=== PATIENT | male | born 1965 | race Caucasian/White ===

== ENCOUNTER → 2016-10-08 | Outpatient (CLI) | payer OTHER ==
--- NOTE | 2016-10-08 15:44 | XR ---
Right hip HISTORY: Pain 2 views of the right hip No comparisons There is a sclerotic focus likely in the anterior cortex of the right femoral neck measuring approxim ately 2.7 cm in size. No definite cortical destruction or soft tissue mass. Alignment is maintained. There is joint space loss. Difficult to exclude a loose body at the lateral aspect of the right hip j oint or possibly chondrocalcinosis. Marginal spurring is mild. Bone mineralization otherwise normal. No fracture or dislocation. IMPRESSION: Findings may be due to osteoarthritis or crystal deposition arthropathy. Possible bone is land right femoral neck. Bone scan may be of benefit to exclude metastatic disease as indicated.
== END | disposition home or self-care (01) ==
LOC: RADXRMAIN 14:09
PROVIDERS: ATTEND Physical Medicine & Rehabilitation
DX: R52 Pain, unspecified (principal)
CPT/HCPCS: 73502

== ENCOUNTER → 2017-06-13 | Outpatient (CLI) | payer OTHER ==
--- NOTE | 2017-06-13 12:33 | XR ---
EXAMINATION TYPE: XR wrist complete LT DATE OF EXAM: 06/13/2017 COMPARISON: NONE HISTORY: Pain TECHNIQUE: Four views submitted. FINDINGS: The osseous structures are intact. The joint spaces are preserved and there is no acute fracture or dislocation. IMPRESSION: 1. No definite acute fracture or dislocation if symptoms persist, follow-up study in 7 to 10 days wo uld be suggested
--- NOTE | 2017-06-13 12:35 | XR ---
EXAMINATION TYPE: XR hand complete LT DATE OF EXAM: 06/13/2017 COMPARISON: NONE HISTORY: Pain TECHNIQUE: Three views are submitted. FINDINGS: The osseous structures are intact. The joint spaces are preserved and there is no acute fracture or dislocation. IMPRESSION: 1. No definite acute fracture or dislocation if symptoms persist, follow-up study in 7 to 10 days wo uld be suggested
== END | disposition home or self-care (01) ==
LOC: RADXRMAIN 12:10
PROVIDERS: ATTEND Physical Medicine & Rehabilitation
DX: M25.532 Pain in left wrist (principal); M89.9 Disorder of bone, unspecified

== ENCOUNTER 2024-08-19 13:55 | Emergency (ER) | payer OTHER ==
--- NOTE | 2024-08-19 14:21 | ED ---
Neck Injury/Pain HPI - General Chief Complaint: Neck Pain/Injury Stated Complaint: Back/Shoulder Pain Time Seen by Provider: 08/19/24 14:21 Source: patient, family, RN notes reviewed Mode of arrival: ambulatory Limitations: no limitations - History of Present Illness Initial Comments: 58-year-old male presented the ER for evaluation of left neck/shoulder pain. He states on 08 06 24 he started to experience neck discomfort. He states throughout that weekend pain began to shoot to his left shoulder. Patient was seen at [facility] on 08-09-2024, he states he had x-rays and CT neck performed which he states were negative. Patient was treated for musculoskeletal pain and discharged with a prescription of Toradol and Flexeril. He states he has been taking these as prescribed with no relief of symptoms. He states over the past week he has had progressive worsening of pain to his left shoulder. He states it is worse with movement causing him limited range of motion. He states pain does occasionally radiate down his posterior arm past his elbow. He denies any paresthesias to his left upper extremity. He was reporting his current discomfort is left anterior shoulder. He denies any known injuries or traumas. He states pain kept him up all last night which prompted emergency department visit. He denies any dizziness, lightheadedness, chest pain, shortness of breath or other complaints. He denies fevers or chills. - Related Data Home Medications Medication Instructions Recorded Confirmed Meloxicam 15 mg PO DAILY 12/11/14 12/11/14 Omeprazole [PriLOSEC] 20 mg PO AC-BRKFST 12/11/14 12/11/14 gemfibroziL [Lopid] 600 mg PO AC-BID 12/11/14 12/11/14 lisinopriL [Prinivil] 20 mg PO DAILY 12/11/14 12/11/14 metFORMIN HCL [Glucophage] 500 mg PO BID 12/11/14 12/11/14 Previous Rx's Medication Instructions Recorded Lidocaine 5% Patch [Lidoderm 5% 1 patch TOPICAL DAILY #30 patch 08/19/24 Patch] Allergies Allergy/AdvReac Type Severity Reaction Status Date / Time nuts Allergy Unknown Uncoded 08/19/24 14:07 Review of Systems ROS Statement: Those systems with pertinent positive or pertinent negative responses have been documented in the HPI. ROS Other: All systems not noted in ROS Statement are negative. Past Medical History Past Medical History: Diabetes Mellitus, Hyperlipidemia, Hypertension Additional Past Medical History / Comment(s): back pain History of Any Multi-Drug Resistant Organisms: None Reported Past Surgical History: No Surgical Hx Reported Past Psychological History: No Psychological Hx Reported Past Alcohol Use History: None Reported Past Drug Use History: None Reported General Exam Limitations: no limitations General appearance: alert, in no apparent distress Neck exam: Present: normal inspection, full ROM. Absent: tenderness, meningismus, lymphadenopathy Respiratory exam: Present: normal lung sounds bilaterally. Absent: respiratory distress, wheezes, rales, rhonchi, stridor Cardiovascular Exam: Present: normal rhythm, tachycardia, normal heart sounds Extremities exam: Present: normal inspection, tenderness (Left AC joint. And left trapezius muscle), normal capillary refill (2+ left radial pulse.), other (Limited full active range of motion given pain) Back exam: Present: normal inspection Neurological exam: Present: alert, oriented X3, CN II-XII intact Skin exam: Present: warm, dry, intact, normal color. Absent: rash Course Vital Signs 08/19/24 08/19/24 14:03 15:38 Temperature 98.7 F 98 F Pulse Rate 125 H 98 Respiratory 17 18 Rate Blood Pressure 106/71 121/77 O2 Sat by Pulse 98 99 Oximetry Medical Decision Making - Medical Decision Making Was pt. sent in by a medical professional or institution (FELICIA Pulliam, ACTIVITY DIRECTOR, urgent care, hospital, or group home...) When possible be specific @ -[No] Did you speak to anyone other than the patient for history (EMS, parent, family, police, friend...)? What history was obtained from this source @ -[No] Did you review nursing and triage notes (agree or disagree)? Why? @ -[I reviewed and agree with nursing and triage notes] Were old charts reviewed (outside hosp., previous admission, EMS record, old EKG, old radiological studies, urgent care reports/EKG's, group home records)? Report findings @ -[No old charts were reviewed] Differential Diagnosis (chest pain, altered mental status, abdominal pain women, abdominal pain men, vaginal bleeding, weakness, fever, dyspnea, syncope, headache, dizziness, GI bleed, back pain, seizure, CVA, palpatations, mental health, musculoskeletal)? @ -Differential Musculoskeletal: Muscular strain, contusion, ligament sprain, fracture, arthritis, septic arthritis, bursitis, cellulitis, muscle spasm, nerve compression, DVT, arterial occlusion, herpes zoster, electrolyte abnormality, tumor.... This is not meant to be in all inclusive list: EKG interpreted by me (3pts min.). @ -None done X-rays interpreted by me (1pt min.). @ -[None done] CT interpreted by me (1pt min.). @ -[None done] U/S interpreted by me (1pt. min.). @ -[None done] What testing was considered but not performed or refused? (CT, X-rays, U/S, labs)? Why? @ -[None] What meds were considered but not given or refused? Why? @ -[None] Did you discuss the management of the patient with other professionals (professionals i.e. , PA, ACTIVITY DIRECTOR, lab, RT, psych nurse, social director, pipe wrapping machine operator, teacher, chief digital media officer, senior case manager)? Give summary @ -[No] Was smoking cessation discussed for >3mins.? @ -[No] Was critical care preformed (if so, how long)? @ -[No] Were there social determinants of health that impacted care today? How? (Homelessness, low income, unemployed, alcoholism, drug addiction, transportation, low edu. Level, literacy, decrease access to med. care, fci, rehab)? @ -[No] Was there de-escalation of care discussed even if they declined (Discuss DNR or withdrawal of care, Hospice)? DNR status @ -[No] What co-morbidities impacted this encounter? (DM, HTN, Smoking, COPD, CAD, Cancer, CVA, ARF, Chemo, Hep., AIDS, mental health diagnosis, sleep apnea, morbid obesity)? @ -[None] Was patient admitted / discharged? Hospital course, mention meds given and route, prescriptions, significant lab abnormalities, going to OR and other p ertinent info. @ -[hospital course] Undiagnosed new problem with uncertain prognosis? @ -[No] Drug Therapy requiring intensive monitoring for toxicity (Heparin, Nitro, Insulin, Cardizem)? @ -[No] Were any procedures done? @ -[No] Diagnosis/symptom? @ -[default] Acute, or Chronic, or Acute on Chronic? @ -[default] Uncomplicated (without systemic symptoms) or Complicated (systemic symptoms)? @ -[default] Side effects of treatment? @ -[No] Exacerbation, Progression, or Severe Exacerbation? @ -[No] Poses a threat to life or bodily function? How? (Chest pain, USA, MD, pneumonia, PE, COPD, DKA, ARF, appy, cholecystitis, CVA, Diverticulitis, Homicidal, Suicidal, threat to staff... and all critical care pts) @ -[No] Disposition Clinical Impression: Shoulder pain Disposition: HOME SELF-CARE Condition: Stable Instructions (If sedation given, give patient instructions): Shoulder Pain (ED) Additional Instructions: Continue use of [id number] ibuprofen and Tylenol for pain control. You have been discharged with a Tylenol 3 starter pack. Do not take over the counter Tylenol while taking Tylenol 3's. Follow-up with orthopedics. Return to the ER for any new or worsening concerns. Prescriptions: Lidocaine 5% Patch [Lidoderm 5% Patch] 1 patch TOPICAL DAILY #30 patch Is patient prescribed a controlled substance at d/c from ED?: No Referrals: Roberto Frias MD [Primary Care Provider] - 1-2 days Coleman Looney MD [STAFF PHYSICIAN] - 1-2 days Time of Disposition: 15:41
[2024-08-19] MEDS: KETOROLAC 15 MG/ML 1 ML VIAL IM STA (14:30)
[2024-08-19] MEDS: ORPHENADRINE 30 MG/ML 2 ML VIAL IM STA (14:30)
--- NOTE | 2024-08-19 15:09 | XR ---
EXAMINATION TYPE: XR shoulder complete LT DATE OF EXAM: 08/19/2024 2:51 PM COMPARISON: None CLINICAL INDICATION: Male, 58 years old with history of pain; PHH, pain TECHNIQUE: 3 views FINDINGS: Mild degenerative spurring and capsular hypertrophy at the acromioclavicular joint. Subacromial space is preserved. Mild to moderate degenerative joint space narrowing along the inferior aspect of the g lenohumeral joint with marginal spurring. No acute fracture, subluxation, dislocation. IMPRESSION: 1. Mild to moderate glenohumeral joint OA. 2. Mild AC joint OA. 3. No acute osseous abnormality seen. [facility], Workstation: [facility], 08/19/2024 3:06 PM
[2024-08-19 15:39] VITALS: BP 121/77; PULSE 98; RESP 18; TEMP 98
[2024-08-19] MEDS: ACET/COD 300 MG/30 MG STARTER PACK 6 TAB BTL PO STA (15:51)
== END 2024-08-19 15:55 | disposition home or self-care (01) ==
LOC: EC 13:55
DX: M25.512 Pain in left shoulder (principal); Z91.018 Allergy to other foods
CPT/HCPCS: 73030; 99283; 96372; J2360; J1885